=== PATIENT | female | born 1930 | race African-American/Black ===

== ENCOUNTER 2016-05-14 04:45 | Emergency (ER) | payer MEDICARE, MEDICAID ==
[~2016-05-14] VITALS: Ht 170.2 cm; Wt 72.7 kg
[~2016-05-14 04:45] MED LIST: ARICEPT10 MG PO; ASPIRIN 81M81 MG/TA2 PO; ATIVAN 1MG T1 MG/TAB PO; COZAAR100 MG PO; DITROPAN 5MG TAB5 MG PO; DYAZIDE 25 MG-31 CAP PO; FERROUS SU325 MG/TAB PO; FLAGYL 250250 MG/TAB PO; FLONASE NASAL S16 GM NS; FLORANEX PO; GAS RELIEF125 MG PO; GLUCOPHAGE500 MG/TAB PO; IMODIUM 2MG CAPS2 MG PO; INDERAL 20MG20 MG PO; K-TAB20; LEVAQUIN 5500 MG/TA1 PO; LEXAPRO 10MG10 MG PO; LIDODERM 5% PATC1 EA TP; MULTIPLE VITAMI1 CAP PO; NORCO 325 MG-51 TAB PO; PRILOSEC 20MG20 MG PO; QUESTRAN4 GM/9 GM PO; SEROQUEL 2525 MG/TAB PO; SINEMET 25/101 UDTAB PO; VITAMIN C500 MG PO; ZANTAC 150MG T150 MG PO; ZOFRAN 4MG T4 MG/TAB PO; ZOFRAN ODT4 MG PO
[2016-05-14 04:53] VITALS: TEMP 97.9
[2016-05-14 05:23] LABS: BASO % 0.3 % (0.0-2.0); EOS # 0.1 (0.0-0.7); EOS % 1.5 % (0-4.0); GRAN # 4.6 (1.4-6.5); GRAN % 70.8 % (42.2-75.2); HEMATOCRIT 33.6 % (37.0-47.0); HEMOGLOBIN 11.2 g/dl (12.5-16.0); LYMPH # 1.2 (1.2-3.4); LYMPH % 18.4 % (20.0-51.0); MEAN CELL VOLUME 97 fl (80.0-100.0); MEAN CORPUSCULAR HEMOGLOBIN 32 pg (27.0-31.0); MEAN CORPUSCULAR HGB CONC 33 g/dl (33.0-37.0); MEAN PLATELET VOLUME 10.6 fl (7.4-10.4); MONO # 0.5 (0.1-0.6); MONO % 8.4 % (1.7-9.3); PLATELET COUNT 127 K/mm3 (130-400); RED BLOOD COUNT 3.46 M/mm3 (4.10-5.30); WHITE BLOOD COUNT 6.5 K/mm3 (4.8-10.8)
[2016-05-14 05:29] LABS: INR 0.9 (0.8-3.0); PROTHROMBIN TIME 10.4 SECONDS (9.7-12.8)
[2016-05-14 05:32] LABS: PARTIAL THROMBOPLASTIN TIME 34.6 SECONDS (26.0-37.0)
[2016-05-14 05:35] LABS: ADJUSTED CALCIUM 9.5 mg/dL (8.4-10.2); ALBUMIN 3.8 gm/dL (3.5-5.0); BILIRUBIN,TOTAL 0.6 mg/dL (0.0-1.0); CALCIUM 9.3 mg/dL (8.4-10.2); CREATININE, serum 0.79 mg/dL (0.52-1.25); POTASSIUM 3.5 mmol/L (3.4-5.0); TOTAL PROTEIN 6.9 gm/dL (6.4-8.2)
[2016-05-14 05:47] LABS: PH 5 (5-8); SQUAMOUS EPITHELIAL None Seen /hpf; URINE APPEARANCE Clear; URINE BACTERIA None Seen /hpf; URINE BILIRUBIN Negative (NEGATIVE); URINE BLOOD 1+ (NEGATIVE); URINE COLOR Yellow; URINE GLUCOSE Negative (NEGATIVE); URINE KETONE Negative (NEGATIVE); URINE UROBILINOGEN Negative (NEGATIVE)
[2016-05-14 05:48] LABS: URINE WBC 0-2 /hpf
[2016-05-14] MEDS ORDERED: COGENTIN .0.5 MG/TAB PO (05:59)
[2016-05-14] MEDS ORDERED: COLACE 100100 MG/CAP PO ×2 (06:00)
[2016-05-14] MEDS ORDERED: NORVASC 10MG10 MG PO (06:02)
[2016-05-14] MEDS ORDERED: MILK OF MA400 MG/52 (06:02)
[2016-05-14] MEDS ORDERED: SENNA8.6 MG PO (06:03)
[2016-05-14] MEDS ORDERED: EXELON9.5 MG/24 TD (06:03)
[2016-05-14] MEDS ORDERED: MIRALAX PA17 GM/Dose PO (06:03)
[2016-05-14] MEDS ORDERED: RISPERDAL CON12.5 MG IM (06:06)
[2016-05-14] MEDS ORDERED: CATAPRES-TTS 10.1 M1 TD (06:07)
[2016-05-14] MEDS ORDERED: ZOLOFT 100MG100 MG PO (06:07)
[2016-05-14] MEDS ORDERED: FENTANYL 12MCG TD (06:11)
[2016-05-14] MEDS ORDERED: TYLENOL 325MG325 MG PO (06:13)
[2016-05-14 08:00] VITALS: BP 143/73; PULSE 63
== END 2016-05-14 08:26 | disposition home or self-care (01) ==
LOC: COL.ER 04:45
PROVIDERS: Emergency Medicine
DX: R41.82 Altered mental status, unspecified (principal); R94.31 Abnormal electrocardiogram [ECG] [EKG]; I44.0 Atrioventricular block, first degree; I47.1 Supraventricular tachycardia; M25.552 Pain in left hip; M25.551 Pain in right hip; M25.561 Pain in right knee; I10 Essential (primary) hypertension; W18.39XA Other fall on same level, initial encounter

== ENCOUNTER → 2016-06-22 | Outpatient (CLI) | payer MEDICARE, MEDICAID ==
[~2016-06-22] MED LIST changes: +CATAPRES-TTS 10.1 M1 TD; +COGENTIN .0.5 MG/TAB PO; +COLACE 100100 MG/CAP PO; +EXELON9.5 MG/24 TD; +FENTANYL 12MCG TD; +MILK OF MA400 MG/52; +MIRALAX PA17 GM/Dose PO; +NORVASC 10MG10 MG PO; +RISPERDAL CON12.5 MG IM; +SENNA8.6 MG PO; +TYLENOL 325MG325 MG PO; +ZOLOFT 100MG100 MG PO
== END ==
LOC: BHSO 10:36
DX: F06.32 Mood disorder due to known physiological condition with major depressive-like episode (principal)

== ENCOUNTER → 2016-07-11 | Outpatient (CLI) | payer MEDICARE, MEDICAID ==
[2016-07-11 18:17] LABS: CALCIUM 9.8 mg/dL (8.4-10.2); CREATININE, serum 0.85 mg/dL (0.52-1.25); POTASSIUM 3.6 mmol/L (3.4-5.0)
== END ==
LOC: ZCOL.LAB 16:16
PROVIDERS: Internal Medicine
DX: E11.9 Type 2 diabetes mellitus without complications (principal); I10 Essential (primary) hypertension

== ENCOUNTER → 2016-07-26 | Outpatient (CLI) | payer MEDICARE, MEDICAID | LOC: BHSO 15:20 | DX: F06.32 Mood disorder due to known physiological condition with major depressive-like episode (principal) ==

== ENCOUNTER → 2016-07-30 | Outpatient (CLI) | payer MEDICARE, MEDICAID | LOC: ZCOL.LAB 09:24 | DX: E11.9 Type 2 diabetes mellitus without complications (principal) ==

== ENCOUNTER → 2016-09-19 | Outpatient (CLI) | payer MEDICARE, MEDICAID | LOC: BHSO 10:10 | DX: F06.32 Mood disorder due to known physiological condition with major depressive-like episode (principal) ==

== ENCOUNTER → 2016-10-12 | Outpatient (CLI) | payer MEDICARE, MEDICAID | LOC: ZCOL.LAB 07:28 | DX: E11.9 Type 2 diabetes mellitus without complications (principal) ==

== ENCOUNTER → 2016-10-13 | Outpatient (CLI) | payer MEDICARE, MEDICAID | LOC: ZCOL.LAB 07:45 | DX: Z01.89 Encounter for other specified special examinations (principal) ==

== ENCOUNTER → 2016-10-19 | Outpatient (CLI) | payer MEDICARE, MEDICAID | LOC: BHSO 10:04 | DX: F06.32 Mood disorder due to known physiological condition with major depressive-like episode (principal) ==

== ENCOUNTER → 2016-10-31 | Outpatient (CLI) | payer MEDICARE, MEDICAID ==
[2016-10-31 04:04] LABS: BASO % 0.2 % (0.0-2.0); EOS # 0.1 (0.0-0.7); EOS % 2.4 % (0-4.0); GRAN # 3.5 (1.4-6.5); GRAN % 59.5 % (42.2-75.2); LYMPH # 1.6 (1.2-3.4); LYMPH % 27.2 % (20.0-51.0); MEAN CELL VOLUME 97 fl (80.0-100.0); MEAN CORPUSCULAR HGB CONC 34 g/dl (33.0-37.0); MONO # 0.6 (0.1-0.6); MONO % 10.5 % (1.7-9.3); PLATELET COUNT 143 K/mm3 (130-400); RED BLOOD COUNT 3.45 M/mm3 (4.10-5.30); REDCELL DISTRIBUTION WIDTH-CV 12.6 % (11.5-14.5); WHITE BLOOD COUNT 5.9 K/mm3 (4.8-10.8)
[2016-10-31 04:05] LABS: HEMATOCRIT 33.4 % (37.0-47.0); HEMOGLOBIN 11.2 g/dl (12.5-16.0); MEAN CORPUSCULAR HEMOGLOBIN 32 pg (27.0-31.0)
[2016-10-31 04:11] LABS: ADJUSTED CALCIUM 9.6 mg/dL (8.4-10.2); ALBUMIN 3.3 gm/dL (3.5-5.0); BILIRUBIN,TOTAL 0.6 mg/dL (0.0-1.0); CREATININE, serum 0.65 mg/dL (0.52-1.25); POTASSIUM 3.6 mmol/L (3.4-5.0); TOTAL PROTEIN 5.9 gm/dL (6.4-8.2)
[2016-10-31 04:41] LABS: THYROID STIMULATING HORMONE 2.54 uIU/mL (0.465-4.680)
== END ==
LOC: ZCOL.LAB 03:29
PROVIDERS: Internal Medicine
DX: I25.10 Atherosclerotic heart disease of native coronary artery without angina pectoris (principal); E11.9 Type 2 diabetes mellitus without complications; G20 Parkinson's disease

== ENCOUNTER → 2016-11-21 | Outpatient (CLI) | payer MEDICARE, MEDICAID ==
[2016-11-21 17:37] LABS: CALCIUM 9.3 mg/dL (8.4-10.2); CREATININE, serum 0.66 mg/dL (0.52-1.25); POTASSIUM 3.6 mmol/L (3.4-5.0)
== END ==
LOC: ZCOL.LAB 12:14
PROVIDERS: Internal Medicine
DX: E11.9 Type 2 diabetes mellitus without complications (principal)

== ENCOUNTER → 2017-01-30 | Outpatient (CLI) | payer MEDICARE, MEDICAID | LOC: ZCOL.LAB 03:15 | PROVIDERS: Internal Medicine | DX: E11.40 Type 2 diabetes mellitus with diabetic neuropathy, unspecified (principal); E78.6 Lipoprotein deficiency ==

== ENCOUNTER → 2017-02-14 | Outpatient (CLI) | payer MEDICARE, MEDICAID | LOC: ZCOL.LAB 04:10 | DX: E11.9 Type 2 diabetes mellitus without complications (principal) ==

== ENCOUNTER → 2017-04-25 | Outpatient (CLI) | payer MEDICARE, MEDICAID ==
[2017-04-25 23:07] LABS: COLLECTION METHOD CLEAN CATCH
[2017-04-25 23:15] LABS: MUCOUS Present /lpf; PH 5 (5-8); URINE APPEARANCE Cloudy; URINE BACTERIA Rare /hpf; URINE BILIRUBIN Negative (NEGATIVE); URINE BLOOD Negative (NEGATIVE); URINE CALCIUM OXALATE CRYSTAL Present /hpf; URINE COLOR Amber; URINE GLUCOSE Negative (NEGATIVE); URINE KETONE Trace (NEGATIVE); URINE LEUKOCYTE ESTERASE 3+ (NEGATIVE); URINE PROTEIN(semi-quant) 1+ (NEGATIVE); URINE UROBILINOGEN Negative (NEGATIVE); URINE WBC 20-50 /hpf
== END ==
LOC: ZCOL.LAB 23:03
PROVIDERS: Internal Medicine
DX: N39.0 Urinary tract infection, site not specified (principal)

== ENCOUNTER → 2017-05-01 | Outpatient (CLI) | payer MEDICARE, MEDICAID ==
[2017-05-01 05:13] LABS: BASO % 0.3 % (0.0-2.0); EOS # 0.1 (0.0-0.7); EOS % 0.8 % (0-4.0); GRAN # 5.7 (1.4-6.5); GRAN % 74.2 % (42.2-75.2); HEMOGLOBIN 12.5 g/dl (12.5-16.0); LYMPH # 1.3 (1.2-3.4); LYMPH % 17.3 % (20.0-51.0); MEAN CELL VOLUME 96 fl (80.0-100.0); MEAN CORPUSCULAR HEMOGLOBIN 33 pg (27.0-31.0); MEAN CORPUSCULAR HGB CONC 34 g/dl (33.0-37.0); MEAN PLATELET VOLUME 10.7 fl (7.4-10.4); MONO # 0.6 (0.1-0.6); MONO % 7.1 % (1.7-9.3); PLATELET COUNT 172 K/mm3 (130-400); RED BLOOD COUNT 3.79 M/mm3 (4.10-5.30); WHITE BLOOD COUNT 7.7 K/mm3 (4.8-10.8)
[2017-05-01 05:15] LABS: HEMATOCRIT 36.4 % (37.0-47.0)
[2017-05-01 05:21] LABS: ADJUSTED CALCIUM 9.8 mg/dL (8.4-10.2); BILIRUBIN,TOTAL 0.7 mg/dL (0.0-1.0); CALCIUM 9.8 mg/dL (8.4-10.2); CREATININE, serum 0.81 mg/dL (0.52-1.25); POTASSIUM 3.9 mmol/L (3.4-5.0); TOTAL PROTEIN 6.8 gm/dL (6.4-8.2)
[2017-05-01 06:23] LABS: THYROID STIMULATING HORMONE 1.77 uIU/mL (0.465-4.680)
== END ==
LOC: ZCOL.LAB 04:41
PROVIDERS: Internal Medicine
DX: D50.9 Iron deficiency anemia, unspecified (principal); E11.9 Type 2 diabetes mellitus without complications; R79.89 Other specified abnormal findings of blood chemistry; Z79.82 Long term (current) use of aspirin